=== PATIENT | female | born 1995 | race Two or more races ===

== ENCOUNTER 2017-09-07 03:32 | Emergency (ER) | payer OTHER ==
[2017-09-07 03:36] VITALS: BP 117/70
[2017-09-07 04:38] LABS: ABSOLUTE BASOPHILS # (AUTO) 0.1 10^3/uL (0.0-0.2); ABSOLUTE EOSINOPHILS # (AUTO) 0.1 10^3/uL (0.0-0.6); ABSOLUTE LYMPHOCYTES (AUTO) 2.3 10^3/uL (0.5-4.7); ABSOLUTE MONOCYTES (AUTO) 0.5 10^3/uL (0.1-1.4); BASOPHILS % (AUTO) 0.7 % (0-2); EOSINOPHILS % (AUTO) 1.3 % (0-6); HEMATOCRIT 38.2 % (36.0-47.0); HEMOGLOBIN 13.1 g/dL (12.0-15.5); LYMPHOCYTES % (AUTO) 22.9 % (13-45); MEAN CORPUSCULAR HEMOGLOBIN 30.2 pg (27.0-33.4); MEAN CORPUSCULAR HGB CONC 34.4 g/dL (32.0-36.0); MEAN CORPUSCULAR VOLUME 88 fl (80-97); PLATELET COUNT 230 10^3/uL (150-450); RED BLOOD COUNT 4.35 10^6/uL (3.72-5.28); RED CELL DISTRIBUTION WIDTH 13.4 % (11.5-14.0); SEGMENTED NEUTROPHILS % (AUTO) 70.1 % (42-78); TOTAL CELLS COUNTED % (AUTO) 100 %
[2017-09-07 04:46] LABS: APPEARANCE,URINE CLOUDY; BILIRUBIN,URINE NEGATIVE (NEGATIVE); COLOR,URINE YELLOW; GLUCOSE, URINE NEGATIVE (NEGATIVE); KETONES,URINE 80 mg/dL (NEGATIVE); LEUKOCYTE ESTERASE,URINE LARGE (NEGATIVE); NITRITE,URINE NEGATIVE (NEGATIVE); PROTEIN,URINE NEGATIVE (NEGATIVE); URINE SPECIFIC GRAVITY 1.012; UROBILINOGEN,URINE NEGATIVE mg/dL (<2.0)
[2017-09-07] MEDS ORDERED: CEFTRIAXONE 1 GM/D5W RTU 1 GM/50 ML RTUPB IV ONE (05:01)
[2017-09-07] MEDS ORDERED: LIDOCAINE 1% INJ-PF (10 MG/ML) 30 ML SDV INFIL ONE (05:09)
[2017-09-07] MEDS ORDERED: CEFTRIAXONE INJ 1000 MG VIAL IM ONE (05:09)
[2017-09-07 05:16] LABS: ALANINE AMINOTRANSFERASE 20 U/L (9-52); ALBUMIN 3.8 g/dL (3.5-5.0); ALKALINE PHOSPHATASE 46 U/L (38-126); ANION GAP 12 (5-19); ASPARTATE AMINO TRANSFERASE 16 U/L (14-36); BILIRUBIN,DIRECT 0.2 mg/dL (0.0-0.4); BILIRUBIN,TOTAL 0.3 mg/dL (0.2-1.3); BLOOD UREA NITROGEN 6 mg/dL (7-20); CALCIUM 9.3 mg/dL (8.4-10.2); CARBON DIOXIDE 22 mmol/L (22-30); CHLORIDE 109 mmol/L (98-107); GLUCOSE 74 mg/dL (75-110); POTASSIUM 3.9 mmol/L (3.6-5.0); SODIUM 142.5 mmol/L (137-145); TOTAL PROTEIN 6.7 g/dL (6.3-8.2)
--- NOTE | 2017-09-07 05:21 | ER Document Report ---
ED GI/ - General Chief Complaint: Vag Bleeding, +preg <12wks Stated Complaint: VAGINAL BLEEDING Time Seen by Provider: 09/07/17 04:19 Notes: Patient is a 22-year-old female who is approximately 11 weeks who comes in complaining of spotting and dysuria. Patient states that she was treated for UTI with Macrobid recently and has 3 pills left. Her symptoms have not been improving. Denies any abdominal pain or cramping. Patient had an ultrasound 2 days ago that showed an intrauterine . Denies any vaginal discharge or concern for STDs. Denies back pain. She did have some nausea. No vomiting. No diarrhea. No other concerns. TRAVEL OUTSIDE OF THE [place] IN LAST 30 DAYS: No - HPI Patient complains to provider of: Dysuria, Vaginal bleeding Onset: Other Timing/Duration: Persistent Quality of pain: Dull Severity at maximum: Mild Severity in ED: Mild : 1 Para: 0 Exacerbated by: Denies Relieved by: Denies - Related Data Allergies/Adverse Reactions: No Known Allergies Allergy (Verified 09/07/17 03:33) Past Medical History - Social History Smoking Status: Never Smoker Lives with: Spouse/Significant other Family History: Reviewed & Not Pertinent - Medical History Medical History: Negative Surgical Hx: Negative Review of Systems - Review of Systems Constitutional: No symptoms reported EENT: No symptoms reported Cardiovascular: No symptoms reported Respiratory: No symptoms reported Gastrointestinal: No symptoms reported Genitourinary: See HPI Female Genitourinary: See HPI Musculoskeletal: No symptoms reported Skin: No symptoms reported Hematologic/Lymphatic: No symptoms reported Neurological/Psychological: No symptoms reported Physical Exam - Vital signs Vitals: Temp Pulse Resp BP Pulse Ox 98.1 F 85 18 117/70 100 09/07/17 03:35 09/07/17 03:35 09/07/17 03:35 09/07/17 03:35 09/07/17 03:35 Interpretation: Normal - General General appearance: Appears well, Alert - HEENT Head: Normocephalic, Atraumatic Eyes: Normal Pupils: PERRL - Respiratory Respiratory status: No respiratory distress Chest status: Nontender Breath sounds: Normal Chest palpation: Normal - Cardiovascular Rhythm: Regular Heart sounds: Normal auscultation Murmur: No - Abdominal Inspection: Normal Distension: No distension Bowel sounds: Normal Tenderness: Nontender Organomegaly: No organomegaly - Back Back: Normal, Nontender - Extremities General upper extremity: Normal inspection, Nontender, Normal color, Normal ROM , Normal temperature General lower extremity: Normal inspection, Nontender, Normal color, Normal ROM , Normal temperature, Normal weight bearing. No: Nilda's sign - Neurological Neuro grossly intact: Yes Cognition: Normal Orientation: AAOx4 [place] Coma Scale Eye Opening: Spontaneous Giuseppe Coma Scale Verbal: Oriented Giuseppe Coma Scale Motor: Obeys Commands Giuseppe Coma Scale Total: 15 Speech: Normal Motor strength normal: LUE, RUE, LLE, RLE Sensory: Normal - Psychological Associated symptoms: Normal affect, Normal mood - Skin Skin Temperature: Warm Skin Moisture: Dry Skin Color: Normal Course - Re-evaluation Re-evalutation: 09/07/17 05:18 Patient appears well. Had intrauterine on ultrasound. Blood type is AB+ and no RhoGam indicated. Urinalysis is consistent with patient's symptoms. Culture will be sent. Patient will be given a dose of Rocephin and discharged home with Keflex. Return immediately if any worsening or concerning symptoms. Agrees with this plan. Stable for discharge home. - Vital Signs Vital signs: Temp Pulse Resp BP Pulse Ox 98.1 F 85 18 117/70 100 09/07/17 03:35 09/07/17 03:35 09/07/17 03:35 09/07/17 03:35 09/07/17 03:35 - Laboratory Result Diagrams: 09/07/17 04:13 09/07/17 04:13 Laboratory results interpreted by me: 09/07/17 04:13 Urine Ketones 80 H Urine Blood LARGE H Ur Leukocyte Esterase LARGE H Discharge - Discharge Clinical Impression: Bleeding in early UTI (urinary tract infection) Qualifiers: Urinary tract infection type: site unspecified Hematuria presence: with hematuria Qualified Code(s): N39.0 - Urinary tract infection, site not specified ; R31.9 - Hematuria, unspecified; R31.9 - Hematuria, unspecified Instructions: Urinary Tract Infection ([facility]), Bleeding During Early ( [facility]) Additional Instructions: Please follow-up with your doctor this week. A urine culture has been sent and you can call for the results at [phone]. Prescriptions: Cephalexin Monohydrate [Keflex 500 mg Capsule] 500 mg PO Q6H 7 Days #28 capsule
[2017-09-07] MEDS ORDERED: ONDANSETRON ODT 4 MG TAB (6 TAB/ER DISP) PO PRN (05:22)
== END 2017-09-07 06:35 | disposition home or self-care (01) ==
LOC: ER 03:32
DX: O23.41 Unspecified infection of urinary tract in pregnancy, first trimester (principal); O46.91 Antepartum hemorrhage, unspecified, first trimester; O26.891 Other specified pregnancy related conditions, first trimester; R30.0 Dysuria; Z3A.11 11 weeks gestation of pregnancy
CPT/HCPCS: 99284; 96372; 86900; 86901; 36415; 87086; 84702; 85025; 80053; 81001; J3490; J0696

== ENCOUNTER 2018-04-16 12:38 | Emergency (ER) | payer OTHER ==
[2018-04-16 13:11] LABS: APPEARANCE,URINE SLIGHTLY-CLOUDY; BILIRUBIN,URINE NEGATIVE (NEGATIVE); COLOR,URINE YELLOW; GLUCOSE, URINE NEGATIVE (NEGATIVE); KETONES,URINE NEGATIVE (NEGATIVE); LEUKOCYTE ESTERASE,URINE LARGE (NEGATIVE); NITRITE,URINE POSITIVE (NEGATIVE); PROTEIN,URINE NEGATIVE (NEGATIVE); URINE SPECIFIC GRAVITY 1.011; UROBILINOGEN,URINE NEGATIVE mg/dL (<2.0)
--- NOTE | 2018-04-16 13:21 | ER Document Report ---
ED Medical Screen (RME) - General Chief Complaint: Post Problem Stated Complaint: VAGINAL PAIN Time Seen by Provider: 04/16/18 13:21 Mode of Arrival: Ambulatory Information source: Patient Notes: Patient is 3 weeks presents with pelvic discomfort, foul odor. She denies fever. She denies nausea, vomiting or abdominal pain. TRAVEL OUTSIDE OF THE [place] IN LAST 30 DAYS: No - Related Data Allergies/Adverse Reactions: No Known Allergies Allergy (Verified 04/16/18 12:40) Past Medical History Renal/ Medical History: Denies: Hx Peritoneal Dialysis Physical Exam - Vital signs Vitals: Temp Pulse Resp BP Pulse Ox 98.5 F 70 16 119/79 100 04/16/18 12:48 04/16/18 12:48 04/16/18 12:48 04/16/18 12:48 04/16/18 12:48 Course - Vital Signs Vital signs: Temp Pulse Resp BP Pulse Ox 98.5 F 70 16 119/79 100 04/16/18 12:48 04/16/18 12:48 04/16/18 12:48 04/16/18 12:48 04/16/18 12:48 - Laboratory Laboratory results interpreted by me: 04/16/18 12:40 Urine Blood LARGE H Urine Nitrite POSITIVE H Ur Leukocyte Esterase LARGE H Doctor's Discharge - Discharge Referrals: MARY,NO [Primary Care Provider] - Follow up as needed
--- NOTE | 2018-04-16 15:08 | ER Document Report ---
ED General - General Chief Complaint: Post Problem Stated Complaint: VAGINAL PAIN Time Seen by Provider: 04/16/18 13:21 Mode of Arrival: Ambulatory TRAVEL OUTSIDE OF THE [place] IN LAST 30 DAYS: No - HPI Notes: Patient is a 22-year-old female approximately 3 weeks who presents emergency department complaining of urinary burning, urgency, frequency, and odor over the last week. Patient states that she has noticed some scant vaginal discharge and faint odor. Patient states that she is currently breast-feeding and has not been sexually active. She is eating and drinking without any difficulties. She is having normal bowel movements. Patient states that she does have some pain with hemorrhoids when she has a bowel movement and would like a cream for that. No other concerns or complaints. Denies drug allergies. Denies any headache, fever, neck pain, URI, sore throat, chest pain, palpitations, syncope, cough, shortness of breath, wheeze, dyspnea, abdominal pain, nausea/vomiting/diarrhea, back pain, or rash. - Related Data Allergies/Adverse Reactions: No Known Allergies Allergy (Verified 04/16/18 12:40) Past Medical History - General Information source: Patient - Social History Smoking Status: Current Every Day Smoker Frequency of alcohol use: None Drug Abuse: None Family History: Reviewed & Not Pertinent Patient has suicidal ideation: No Patient has homicidal ideation: No Renal/ Medical History: Denies: Hx Peritoneal Dialysis Past Surgical History: Reports: Hx Oral Surgery - wisdom teeth Review of Systems - Review of Systems -: Yes All other systems reviewed and negative Physical Exam - Vital signs Vitals: Temp Pulse Resp BP Pulse Ox 98.5 F 70 16 119/79 100 04/16/18 12:48 04/16/18 12:48 04/16/18 12:48 04/16/18 12:48 04/16/18 12:48 - Notes Notes: PHYSICAL EXAMINATION: GENERAL: Well-appearing, well-nourished and in no acute distress. LUNGS: Breath sounds clear to auscultation bilaterally and equal. No wheezes rales or rhonchi. HEART: Regular rate and rhythm without murmurs, rubs, gallops. ABDOMEN: Soft, nontender, nondistended abdomen. No guarding, no rebound. No masses appreciated. Normal bowel sounds present. No CVA tenderness bilaterally. Rectal (accompanied by female pct, dallin): no thrombosed hemorrhoid noted. + very small external hemorrhoid. No fissure. : Pt declined and wanted to self-swab. Musculoskeletal: FROM to passive/active. Strength 5+/5. Extremities: No cyanosis, clubbing, or edema b/l. Peripheral pulses 2+. Capillary refill less than 3 seconds. NEUROLOGICAL: Normal speech, normal gait. Normal sensory, motor exams PSYCH: Normal mood, normal affect. SKIN: Warm, Dry, normal turgor, no rashes or lesions noted. Course - Re-evaluation Re-evalutation: 04/16/18 15:35 Patient is an afebrile, well-hydrated, 22-year-old female who presents emergency department with an acute UTI and bacterial vaginosis. Vitals are acceptable without any significant tachycardia, tachypnea, or hypoxia. PE is otherwise unremarkable. Patient's abdomen is soft and nontender. She is nontoxic- appearing and is tolerating p.o. without difficulty. See urinalysis results. See wet mount results. Gonorrhea tests are pending, but patient has declined any treatment prior to results. No further labs or imaging warranted at this time. Low suspicion/risk for acute appendicitis, bowel obstruction, acute cholecystitis, acute cholangitis, perforated diverticulitis, incarcerated hernia, pancreatitis, perforated ulcer, peritonitis, sepsis, pelvic inflammatory disease, ectopic , tubo-ovarian abscess, ovarian torsion, or other systemic emergent condition at this time. Patient is aware that her condition can change from initial presentation and she needs to monitor symptoms closely and seek medical attention if any acute changes. I will send her home with metronidazole vaginal suppository as well as Keflex. Conservative measures otherwise for symptoms. Recheck with your PCM/[facility] in 3-5 days. Return to the ED with any worsening/concerning symptoms otherwise as reviewed in discharge. Patient is in agreement. - Vital Signs Vital signs: Temp Pulse Resp BP Pulse Ox 98.5 F 70 16 119/79 100 04/16/18 12:48 04/16/18 12:48 04/16/18 12:48 04/16/18 12:48 04/16/18 12:48 - Laboratory Laboratory results interpreted by me: 04/16/18 12:40 Urine Blood LARGE H Urine Nitrite POSITIVE H Ur Leukocyte Esterase LARGE H Discharge - Discharge Clinical Impression: Acute UTI (urinary tract infection), Bacterial vaginosis Condition: Stable Disposition: HOME, SELF-CARE Instructions: Urinary Tract Infection ([facility]), Vaginosis, Bacterial ([facility]), Cephalexin ([facility]) Additional Instructions: Push fluids (i.e. water, cranberry juice) Proper hygenic technique Keep the skin clean Tylenol/ibuprofen as needed Take medications as directed F/u with your PCM/[facility] in 3-5 days for a recheck Consider consult with a Urologist for ongoing/worsening symptoms. Return to the ED with any worsening symptoms and/or development of fever, headache, chest pain, palpitations, syncope, shortness of breath, trouble breathing, abdominal pain, n/v/d, blood in stool/urine, loss of control of bowel/bladder, urinary retention, or other worsening symptoms that are concerning to you. Prescriptions: Cephalexin Monohydrate [Keflex 500 mg Capsule] 500 mg PO TID #21 capsule Metronidazole [Nuvessa] 5 gm VG DAILY 7 Days #7 [email or web address] Referrals: [facility] [Provider Group] - Follow up as needed
[2018-04-16 15:10] LABS: BACTERIA (WET MOUNT) 3+ BACTERIA SEEN; EPITHELIALS (WET MOUNT) 3+ EPITHELIALS SEEN; RBCS (WET MOUNT) 3+ RBCS SEEN; T.VAGINALIS (WET MOUNT) NO TRICHOMONAS SEEN; WBCS (WET MOUNT) 2+ WBCS SEEN; YEAST (WET MOUNT) NO YEAST SEEN
[2018-04-16 16:42] LABS: CHLAM PCR NOT DETECTED (NOT DETECT); GON PCR NOT DETECTED (NOT DETECT)
[2018-04-16 16:47] VITALS: BP 103/67
== END 2018-04-16 16:07 | disposition home or self-care (01) ==
LOC: ER 12:38
DX: O86.13 Vaginitis following delivery (principal); B96.89 Other specified bacterial agents as the cause of diseases classified elsewhere; O86.20 Urinary tract infection following delivery, unspecified; O87.2 Hemorrhoids in the puerperium; O99.335 Smoking (tobacco) complicating the puerperium
CPT/HCPCS: 81001; 81025; 87086; 87088; 87186; 87210; 87491; 87591; 99283